=== PATIENT | female | born 1965 | race Caucasian/White ===

== ENCOUNTER 2022-01-25 12:25 | Emergency (ER) | payer OTHER ==
[~2022-01-25] VITALS: Ht 165.1 cm; Wt 102.8 kg
[2022-01-25 15:23] VITALS: BP 152/89
[2022-01-25] MEDS ORDERED: traMADol HCL 50 MG TAB PO ONE (15:30)
[2022-01-25] MEDS ORDERED: ONDANSETRON ODT 4 MG TAB PO ONE (15:30)
[2022-01-25] MEDS ORDERED: AMOX500C2 PO (15:32)
[2022-01-25] MEDS ORDERED: IBUP800T26 PO (15:32)
== END 2022-01-25 15:41 | disposition home or self-care (01) ==
LOC: ER 12:28
DX: K04.7 Periapical abscess without sinus (principal); Z87.442 Personal history of urinary calculi; Z90.49 Acquired absence of other specified parts of digestive tract; Z98.890 Other specified postprocedural states
CPT/HCPCS: 99283; Q0162